=== PATIENT | male | born 1955 | race Caucasian/White ===

== ENCOUNTER 2019-08-13 20:33 | Emergency (ER) | payer BC, OTHER ==
[~2019-08-13] VITALS: Ht 177.8 cm; Wt 81.6 kg
[2019-08-13 20:39] VITALS: BP 141/89
[2019-08-13 20:51] VITALS: BP 141/89
--- NOTE | 2019-08-13 20:55 | NUR ---
PATIENT ARRIVED TO ER FOLLOWING A FALL AT HOME. PATIENT WAS PLAYING CATCH WITH GRANDSON WHEN HE STEPPED OFF SIDEWALK, ROLLING RIGHT ANKLE AND FALLING. PATIENT BROKE FALL WITH RIGHT HAND. PATIENT DENIES ANY HEAD INJURY OF LOSS OF CONSCIOUSNESS. PATIENT HAS REDUCED ROM TO RIGHT HAND WITH SHARP PAIN UPON MOVEMENT. RIGHT ANKLE IS SORE, BUT ROM IS GOOD. PATIENT HAS NO SIGNIFICANT HEALTH HISTORY AND NO KNOWN DRUG ALLERGY. PATIENT HAS A PAIN LEVEL OF 7 AT THIS TIME. PATIENT IS RESTING IN POSITION OF COMFORT, BED IN LOW LOCKED POSITION.
[2019-08-13] MEDS ORDERED: TORADOL IM STA (21:22)
--- NOTE | 2019-08-13 21:41 | ER.PDOC ---
General Chief Complaint: Trauma Stated Complaint: HAND & LEG INJURY Time seen by MD: 21:39 Source: patient Exam Limitations: no limitations History of Present Illness Initial Comments Right hand and ankle pain S/P fall while playing with his grandson. He did not hit his head and no loss of consciousness. Occurred: just prior to arrival Where: home Severity: mild Injuries/Pain Location: upper extremity, lower extremity Context: Tripped Loss of Consciousness: No Loss of Consciousness Associated Symptoms: denies symptoms Past Medical History Medical History: no pertinent history Surgical History: no surgical history Social History Alcohol Use: rarely Drug Use: none Review of Systems Constitutional: no symptoms reported Respiratory: no symptoms reported Cardiovascular: no symptoms reported Gastrointestinal: no symptoms reported Musculoskeletal: see HPI All Other Systems: Reviewed and Negative Physical Exam General Appearance: No Apparent Distress, WD/WN Head: No Evidence of Injury Neck: Non-Tender, Normal Alignment, Nexus criteria neg, Normal Inspection Cardiovascular/Respiratory: Regular Rate, Rhythm, No M/R/G, Normal Peripheral Pulses, No JVD, Normal Breath Sounds, No Respiratory Distress Gastrointestinal: Normal Bowel Sounds, No Organomegaly, No Pulsatile Mass, Non Tender, Soft Back: Normal Inspection, No CVA Tenderness, No Vertebral Tenderness Extremities: Tenderness (right hand and ankle) Neurologic/Psychiatric: 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 II-XII NML as Tested, No Motor/Sensory Deficits, Alert, Normal Mood/Affect, Oriented x 3 Skin: Normal Color, Warm/Dry Alejandro Coma Score Best Eye Response: (4) Open Spontaneously Best Verbal Response: (5) Oriented Best Motor Response: (6) Obeys Commands Results/Orders Results/Orders Orders - WILDER VALDEZ MD Xr Hand Rt (08/13/19 21:22) Xr Ankle 3v Rt (08/13/19 21:22) Ketorolac Tromethamine (Toradol) (08/13/19 21:22) Ketorolac Tromethamine (Toradol) (08/13/19 21:50) Vital Signs Date Time Temp Pulse Resp B/P (MAP) Pulse Ox O2 Delivery O2 Flow Rate FiO2 08/13/19 22:01 98.2 79 18 155/114 (128) 97 Room Air 08/13/19 20:55 18 08/13/19 20:51 98.2 79 18 141/89 (106) 97 Room Air 08/13/19 20:39 98.2 79 18 97 5/9/20 20:39 98.2 79 18 Administered Medications Medications (Trade) Dose Ordered Sig/Cisco Route PRN Reason Start Time Stop Time Status Last Admin Dose Admin Ketorolac Tromethamine (Toradol) 60 mg STAT STAT IM 08/13/19 21:22 08/13/19 21:25 DC 08/13/19 21:55 60 MG EKG/XRAY/CT/US XRAY: ankle (No acute bony abnormality of right ankle) XRAY Comments: Fracture right 4th metacarpal Departure Time of Disposition: 22:11 Disposition: 01 HOME, SELF-CARE Impression: Primary Impression: Fracture, metacarpal Additional Impression: Injury of ankle, right Condition: Stable Referrals: PCP,UNKNOWN (PCP) PRIMARY CARE PROVIDER Additional Instructions: Ice 3 times a day for 3 days Tylenol #3 Ibuprofen F/U with Dr. Kang in 2-3 days, call for appointment Return to ED if worsening symptoms or concerns Duration or Time Spent with Pa: 30 min Problem Qualifiers Primary Impression: Fracture, metacarpal Encounter type: initial encounter Metacarpal bone: fourth Fracture type: closed Metacarpal location: shaft Fracture alignment: displaced Latera lity: right Qualified Codes: S62.324A - Displaced fracture of shaft of fourth metacarpal bone, right hand, initial encounter for closed fracture Additional Impression: Injury of ankle, right Encounter type: initial encounter Qualified Codes: S99.911A - Unspecified injury of right ankle, initial encounter WILDER VALDEZ MD August 13, 2019 21:41
[2019-08-13] MEDS ORDERED: TORADOL ONE (21:50)
[2019-08-13 22:01] VITALS: BP 155/114
--- NOTE | 2019-08-13 22:21 | DIREP ---
PROCEDURE:XRAY HAND MIN 3 VW-RT COMPARISON:None. INDICATIONS:injury FINDINGS: BONES:There is an acute, oblique, nondisplaced fracture involving the mid aspect of the right 4th metacarpal JOINTS:Normal. SOFT TISSUES:Normal. OTHER:No additional findings. CONCLUSION:Acute fracture of the 4th metacarpal Dictated by: Nydia Munoz M.D. on 08/13/2019 at 10:19 PM
--- NOTE | 2019-08-13 22:24 | DIREP ---
PROCEDURE:XRAY ANKLE MIN 3VWS-RT COMPARISON:None. INDICATIONS:injury FINDINGS: BONES:Minimal spurring off the medial malleolus. JOINTS:Normal. SOFT TISSUES:Normal. OTHER:No additional findings. CONCLUSION:No acute bony abnormality Dictated by: Nydia Munoz M.D. on 08/13/2019 at 10:21 PM
[2019-08-13 22:34] VITALS: BP 155/91
== END 2019-08-13 22:32 | disposition home or self-care (01) ==
LOC: ER 20:33
DX: S62.324A Displaced fracture of shaft of fourth metacarpal bone, right hand, initial encounter for closed fracture (principal); S99.911A Unspecified injury of right ankle, initial encounter; Z79.1 Long term (current) use of non-steroidal anti-inflammatories (NSAID); W19.XXXA Unspecified fall, initial encounter; Y93.89 Activity, other specified; Y92.098 Other place in other non-institutional residence as the place of occurrence of the external cause; Y99.8 Other external cause status
CPT/HCPCS: 29125; 73130; 73610; 96372; 99284; J1885